=== PATIENT | female | born 1960 | race Caucasian/White ===

== ENCOUNTER 2017-02-09 15:39 | Emergency (ER) | payer MEDICARE, MEDICAID ==
--- NOTE | ~2017-02-09 | ER ---
PATIENT'S NAME: CARY CHERY [facility] AGE: 56 Y [address] ROOM: [place] [address] LOCATION: [facility] ADMIT DATE: 02/09/2017 ER/Outpatient Report DISCHARGE DATE: 02/09/2017 FAMILY PHYSICIAN: Tha Welch MD ATTENDING PHYSICIAN: Carlin Colunga Time of Arrival: 1540 hours. Time of Exam: 1555 hours. CHIEF COMPLAINT: Mouth pain. HISTORY OF PRESENT ILLNESS: The patient states for the past 3 days has had pain in her mouth, tongue feels coated in full, very tender when she tries to the eat or swallow. Has not had problems like this in the past. Denies any injury to her mouth. Has not felt like she has been running a fever. ALLERGIES: ON HER CHART AND REVIEWED BY ME. CURRENT MEDICATIONS: On her chart and reviewed by me. PAST MEDICAL HISTORY: Hypertension, seizures. PAST SURGERIES: Bilateral carpal tunnel, neck surgery. SOCIAL HISTORY: Denies use of tobacco, drugs, or alcohol. She presents to the ER accompanied by her . REVIEW OF SYSTEMS: All negative other than those mentioned in the HPI. PHYSICAL EXAMINATION: VITAL SIGNS: She weighs 164 pounds she states. Her blood pressure was 134/71, pulse of 81, respirations 16, temperature of 99.3, and O2 saturation was 96% on room air. GENERAL: She is awake, alert, and oriented x4. SKIN: [place], warm, and dry. RESPIRATIONS: Even and nonlabored. Lung sounds were clear throughout. HEART: Regular rate and rhythm. PATIENT'S NAME: CARY CHERY [facility] AGE: 56 Y [address] ROOM: [place] [address] LOCATION: [facility] ADMIT DATE: 02/09/2017 ER/Outpatient Report DISCHARGE DATE: 02/09/2017 FAMILY PHYSICIAN: Tha Welch MD ATTENDING PHYSICIAN: Carlin Colunga HEENT: The patient's tongue has a white coating to it. There is some white coating to the sides of her inner mouth also. IMPRESSION: Candidiasis of the mouth. PLAN: Home, rest. Prescriptions were written for nystatin solution. She is to rinse it around in her mouth and then swallow. She is to do it 4 times a day. If things are not improving, she should follow up with her primary provider or her dentist in 2-3 days. Tylenol or ibuprofen as needed. She verbalized understanding. ALEXIA ROBERTSON APRN FOR DO JACLYN KINSEY/fredis /[id number] d: 02/09/17 2321 t: 02/13/17 0652, OUTPATIENT REPORT
[2017-03-06] MEDS ORDERED: CALCIUM 600 +1 EAC6 PO (09:21)
[2017-03-06] MEDS ORDERED: LEVETIRACETAM250 MG PO (09:22)
[2017-03-06] MEDS ORDERED: VESICARE10 MG PO (09:22)
[2017-03-06] MEDS ORDERED: TOPROL XL 5050 MG PO (09:22)
[2017-03-06] MEDS ORDERED: TOPAMAX100 MG PO (09:23)
[2017-03-06] MEDS ORDERED: DEPAKOTE DELAY250 MG PO (09:24)
[2017-03-06] MEDS ORDERED: PRILOSEC20 MG PO (09:24)
== END 2017-02-09 16:20 | disposition disaster alternative care site (69) ==
LOC: GMED 15:39
DX: B37.0 Candidal stomatitis (principal); I10 Essential (primary) hypertension; Z98.890 Other specified postprocedural states; Z88.0 Allergy status to penicillin; Z88.8 Allergy status to other drugs, medicaments and biological substances; Z88.5 Allergy status to narcotic agent; Z79.899 Other long term (current) drug therapy

== ENCOUNTER → 2017-02-20 | Outpatient (CLI) | payer MEDICARE, MEDICAID ==
[~2017-02-20] MED LIST: CALCIUM 600 +1 EAC6 PO; DEPAKOTE DELAY250 MG PO; LEVETIRACETAM250 MG PO; NORCO 5-325 TA1 EACH; PRILOSEC20 MG PO; TOPAMAX100 MG PO; TOPROL XL 5050 MG PO; VESICARE10 MG PO
== END | disposition disaster alternative care site (69) ==
LOC: GRAD 08:41
DX: M47.812 Spondylosis without myelopathy or radiculopathy, cervical region (principal); M79.603 Pain in arm, unspecified; G31.9 Degenerative disease of nervous system, unspecified; M43.22 Fusion of spine, cervical region; M48.02 Spinal stenosis, cervical region

== ENCOUNTER → 2017-03-01 | Outpatient (CLI) | payer MEDICARE, MEDICAID | LOC: LFPA 11:25 | DX: Z01.818 Encounter for other preprocedural examination (principal) ==

== ENCOUNTER 2017-03-08 05:40 | Inpatient (IN) | payer MEDICARE, MEDICAID ==
[~2017-03-08] VITALS: Ht 167.6 cm; Wt 73.9 kg
--- NOTE | ~2017-03-08 | OR ---
PATIENT'S NAME: JULI CHERY [facility] AGE: 56 Y [address] ROOM: [address] [address] LOCATION: [facility] ADMIT DATE: 03/08/2017 OR/Procedure Report DISCHARGE DATE: 03/09/2017 FAMILY PHYSICIAN: Tha Welch MD ATTENDING PHYSICIAN: Alva Brito SURGEON: Alva Brito MD TUBE BLOWER: Janis Mcelroy DATE OF PROCEDURE: CORRECTED PATIENT ACCOUNT INFORMATION 03/19/2017 AO PREOPERATIVE DIAGNOSIS: Cervical spondylosis with radiculopathy. POSTOPERATIVE DIAGNOSIS: Cervical spondylosis with radiculopathy. PROCEDURES PERFORMED: 1. Anterior cervical diskectomy with decompression of neural elements and foraminotomy at C6-7. 2. Anterior cervical diskectomy, decompression of neural elements and foraminotomy at C7-T1. 3. Structural allograft and morcellized autograft fusion at C6-C7. 4. Structural allograft and morselized allograft fusion at C7-T1. 5. Use of anterior plating system [place] Elite System plate from C6-T1. 6. Use of operative microscope. ANESTHESIA: General. ANESTHESIA PROVIDER: Donell Mitchell M.D. HISTORY: Juli Chery is a 56-year-old female, who presented with pain going down her left arm radiating into the left ring and little fingers. Her whole arm was very tender to touch. Imaging studies showed bilateral foraminal stenosis at C6-C7, and severe left foraminal stenosis at C7-T1. Given the severity of the patient's pain and the appearance on the MRI scan, surgery was recommended. The above procedures, benefits, and risks were discussed with the patient and with her consent, she was brought to the operating room for surgery. PROCEDURE IN DETAIL: In the operating room, the patient was placed in a supine position. Anesthesia was induced. She was intubated. She had already had prior C4-5 and C5-6. Her head was placed in a gel donut and a roll was placed under her shoulders, thereby maintaining her neck in slight extension. The incision line was marked out on the right side of her neck along the anterior border of the sternomastoid muscle. The patient had already had C3-4 and C4-5 fusion, and the incision was extended along the scar of her previous surgery. Local anesthesia was infiltrated. The #10 blade was used to open PATIENT'S NAME: JULI CHERY [facility] AGE: 56 Y [address] ROOM: [id number] [place], [place] [address] LOCATION: [facility] ADMIT DATE: 03/08/2017 OR/Procedure Report DISCHARGE DATE: 03/09/2017 FAMILY PHYSICIAN: Tha Welch MD ATTENDING PHYSICIAN: Alva Brito the incision and dissection was continued along the anterior border of the sternomastoid muscle. Working very carefully, the external jugular vein was identified and preserved. The omohyoid muscle was found. The space between the omohyoid and sternomastoid muscles was developed. The [employer] handheld retractors were used to facilitate the dissection. We identify the anterior surface of the cervical spine, and there were osteophytes at the expected levels of C6-C7 and C7-T1. These osteophytes had overgrown the disk space at both levels. The longus colli muscles were identified and dissected off the anterior surface of the spine and belt and link assembly supervisor retractors were used to maintain exposure by inserting the blades underneath the longus colli muscles. After exposure of the disk spaces, intraoperative x-ray was obtained to confirm that we were at the desired levels of C6-7 and C7-T1. The osteophytes were rongeured off and the disk spaces became visible at C6-C7 and C7-T1. The disk spaces were quite narrow at both levels. Diskectomy was carried out at each of these levels. The technique for the diskectomy will be described for one level as representing both levels. Microscope was brought in and the distraction pins were inserted into the appropriate vertebrae. Using the distraction pins, the disk space was opened up slightly. The curette was used to scrape out more disk material. Which was removed with the pituitary rongeur. Further drilling removed more of the disk until we got to the posterior longitudinal ligament. The ligament was elevated with a sharp hook and divided with a #15 blade. The Kerrison rongeur was then used to remove the rest of the ligament as well as the posterior osteophytes. Attention was directed to the foramina on the left side, which is where the patient was more symptomatic. A very thorough foraminotomy was carried out at both levels especially on the left side. At the end of the decompression, I felt that both central canal as well as the neural foramen had been adequately decompressed. Attention was then directed to the fusion. The patient's osteophytes had been harvested earlier were ground up and inserted into allograft bone. The disk spaces were prepared. The allograft bone filled and the patient's own bone was inserted into each of the disk spaces. We had a very good fit. Next, the [place] Elite plate was used to reinforce the fusion and two screws each were affixed to C6, C7, and T1. A final x-ray was obtained to confirm the position of the graft screws and plate. Hemostasis was achieved and irrigation was used to wash out the debris. The incision was closed in layers using appropriate suture materials. Sterile dressing was applied. The patient's anesthesia was reversed. She was PATIENT'S NAME: JULI CHERY [facility] AGE: 56 Y [address] ROOM: [place] [address] LOCATION: [facility] ADMIT DATE: 03/08/2017 OR/Procedure Report DISCHARGE DATE: 03/09/2017 FAMILY PHYSICIAN: Tha Welch MD ATTENDING PHYSICIAN: Alva Brito extubated and taken to the recovery room to complete her recovery. I was present and performed every aspect of this procedure, assisted at some stages by operating room nurses. There were no apparent intraoperative complications. Swabs, needles, and instruments were all accounted for at the end of the case. I expect the patient to benefit from this procedure. I expect her left arm pain to improve now that the nerve roots had been decompressed. ALVA BRITO MD CNO/modl /[id number] CC: Tha Welch MD CORRECTED PATIENT ACCOUNT INFORMATION 03/19/2017 AO d: 03/11/17 0123 t: 03/19/17 1509, OPERATIVE SUMMARY
[~2017-03-08 05:40] MED LIST changes: -NORCO 5-325 TA1 EACH
--- NOTE | 2017-03-08 17:49 | NUR ---
Significant Event: Received from [facility] @ 1200. Will have 4th hourly vs due @ 1845. Had L) arm weakness, numbness and tingling when initially back from [facility]. Now grasps are equal. Reports less n/t. Other csm WNL. [place] barrier to R) neck c/d/i. [place] @ 1735. Unable to void. STraight cathed @ 1300 for 900. wheeled chair bound. Poss discharge to home tomorrow. Follow up:
--- NOTE | 2017-03-09 04:08 | NUR ---
Significant Event: PATIENT ALERT AND ORIENTED X 3. VSS. TAKING PO WITHOUT DIFFICULTY. WAS STRAIGHT CATHED X 1 AT 2100 FOR 700 ML. PATIENT WAS ABLE TO VOID ON OWN AT 0300 250 ML AND POST-VOID SCAN SHOWED 120 ML. WILL CONTINUE TO MONITOR. CSM'S NORMAL FOR PATIENT. PAIIENT DOES HAVE JERKY SPASTIC MOVEMENTS WITH ACTIVITY. UP WITH 1 ASSIST AND GB TO COMMODE. PATIENT DOES A PIVOT TRANSFER. PATIENT IS W/C BOUND AT [facility]. ISLAND BARRIER DRESSING TO ANTERIOR NECK C/D/I. PAIN WELL CONTROLLED WITH NORCO LAST AT 0058. PLEASANT AND COOPERTIVE WITH CARES. PLANS DISMISSAL TODAY IF VOIDING OK. Follow up:
[2017-03-09] MEDS ORDERED: NORCO 5-325 TA1 EACH (11:17)
--- NOTE | 2017-03-09 16:40 | NUR ---
discharge instructions reviewed with patient and . Both verbalize understanding of all instructions. Reviewed care of dressing, all medications, need to call and make follow up appt, activity, s/s infection, when to callthe doctor. All questions answered. all belongings sent with patient. To front door per her own wheelchair. assisted her into the cab.
== END 2017-03-09 14:25 | disposition disaster alternative care site (69) | DRG 472 ==
LOC: G3N 05:40 → GSDC 05:40 → G3N 12:10 → GSDC 12:11 → G3N 03-09 14:25 → GSDC 03-09 14:25 → G3N 03-09 14:25
PROVIDERS: ADMIT Neurological Surgery
DX: M43.02 Spondylolysis, cervical region (principal); G11.9 Hereditary ataxia, unspecified; I10 Essential (primary) hypertension; G40.909 Epilepsy, unspecified, not intractable, without status epilepticus; M54.12 Radiculopathy, cervical region; M85.80 Other specified disorders of bone density and structure, unspecified site; Z90.49 Acquired absence of other specified parts of digestive tract; Z88.0 Allergy status to penicillin; Z99.3 Dependence on wheelchair
CPT/HCPCS: C1713; J1100; J2001; J2250; J2405; J3010; J3370; J7030; J7120